=== PATIENT | male | born 1990 | race Two or more races ===

== ENCOUNTER → 2018-11-09 | Emergency (ER) | payer SELFPAY ==
--- NOTE | 2018-11-09 18:00 | NUR ---
PT LEFT WITHOUT BEING SEEN
== END | disposition left against medical advice (07) ==
LOC: ER 17:20
DX: Z53.21 Procedure and treatment not carried out due to patient leaving prior to being seen by health care provider (principal)

== ENCOUNTER 2018-11-13 13:04 | Emergency (ER) | payer OTHER ==
[~2018-11-13] VITALS: Ht 180.3 cm; Wt 93.0 kg
[2018-11-13 13:13] VITALS: BP 131/115
--- NOTE | 2018-11-13 14:13 | NUR ---
PT IS BACK FROM THE CT SCAN.
--- NOTE | 2018-11-13 15:00 | NUR ---
Patient discharged in custody in stable condition. Written and verbal after care instructions given. Patient verbalizes understanding of instruction.
== END 2018-11-13 15:04 ==
LOC: ER 13:08
DX: S05.12XA Contusion of eyeball and orbital tissues, left eye, initial encounter (principal); S09.8XXA Other specified injuries of head, initial encounter; R51 Headache; Z02.89 Encounter for other administrative examinations; Y04.8XXA Assault by other bodily force, initial encounter; Y93.89 Activity, other specified; Y92.89 Other specified places as the place of occurrence of the external cause; Y99.8 Other external cause status
CPT/HCPCS: 70486-TC

== ENCOUNTER 2019-02-09 00:13 | Emergency (ER) | payer SELFPAY ==
--- NOTE | 2019-02-09 00:16 | NUR ---
CALLED FOR TRIAGE, NO ANSWER.
--- NOTE | 2019-02-09 00:24 | NUR ---
CALLED FOR TRIAGE, NO ANSWER.
--- NOTE | 2019-02-09 00:29 | NUR ---
CALLED FOR TRIAGE, NO ANSWER.
== END 2019-02-09 01:30 | disposition left against medical advice (07) ==
LOC: ER 00:20
DX: Z53.21 Procedure and treatment not carried out due to patient leaving prior to being seen by health care provider (principal)

== ENCOUNTER 2021-08-28 | Emergency (ER) | payer MEDICAID ==
--- NOTE | 2021-08-28 00:50 | NUR ---
CALLED FOR TRIAGE NOT IN WAITING ROOM.
--- NOTE | 2021-08-28 01:24 | NUR ---
PATIENT LEFT WITHOUT BEING SEEN
== END 2021-08-28 01:25 | disposition left against medical advice (07) ==
LOC: ER 00:18
DX: Z53.21 Procedure and treatment not carried out due to patient leaving prior to being seen by health care provider (principal)

== ENCOUNTER 2021-10-03 09:08 | Emergency (ER) | payer MEDICAID ==
[~2021-10-03] VITALS: Ht 182.9 cm; Wt 81.6 kg
--- NOTE | 2021-10-03 09:45 | NUR ---
DR LING AT BEDSIDE W/ PATIENT.
--- NOTE | 2021-10-03 10:21 | NUR ---
PHLEB TECH AT BEDSIDE FOR BLOOD DRAW.
--- NOTE | 2021-10-03 10:25 | NUR ---
STATIONARY ENGINEER SUPERVISOR AT BEDSIDE
[2021-10-03 10:46] LABS: BASOPHILS % (AUTO) 0.3 % (0.0-2.0); EOSINOPHILS % (AUTO) 1.6 % (0.0-6.0); HEMATOCRIT 33 % (39-51); HEMOGLOBIN 10.2 g/dL (13.5-17.5); LYMPHOCYTES # (AUTO) 1.4 K/uL (0.8-4.8); LYMPHOCYTES % (AUTO) 17.8 % (20.0-44.0); MEAN CORPUSCULAR HGB CONC 31 g/dl (31.0-36.0); MEAN CORPUSCULAR VOLUME 63 fL (80-96); MONOCYTES # (AUTO) 0.7 K/uL (0.1-1.30); MONOCYTES % (AUTO) 9.5 % (2.0-12.0); NEUTROPHILS # (AUTO) 5.4 K/uL (1.8-8.9); NEUTROPHILS % (AUTO) 70.8 % (43.0-81.0); PLATELET COUNT (AUTO) 279 K/uL (150-450); RED BLOOD CELL COUNT(AUTO) 5.26 MIL/uL (4.5-6.0); WHITE BLOOD COUNT (AUTO) 7.6 K/uL (4.3-11.0)
[2021-10-03 10:50] LABS: CALCIUM, SERUM 9.2 mg/dL (8.5-10.1); CREATININE 0.6 mg/dL (0.6-1.3); POTASSIUM 3.9 mmol/L (3.5-5.1)
--- NOTE | 2021-10-03 10:55 | NUR ---
ASKED PATIENT TO GIVE URINE BUT PATIENT DOESN'T FEEL LIKE URINATING RIGHT NOW; ASKED IF CATHETER IS OK BUT PATIENT REFUSED.
[2021-10-03 10:56] LABS: BILIRUBIN,DIRECT 0.1 mg/dL (0.0-0.2); BILIRUBIN,TOTAL 0.2 mg/dL (0.2-1.0); TOTAL PROTEIN, SERUM 8.8 g/dL (6.4-8.2)
[2021-10-03] MEDS ORDERED: NALO1DIS2 IM (10:58)
[2021-10-03] MEDS ORDERED: HYDR25TA4 PO (10:58)
[2021-10-03 11:19] LABS: EOSINOPHILS % (MANUAL) 4 % (0-4); LYMPHOCYTES % (MANUAL) 19 % (16-48); MONOCYTES % (MANUAL) 5 % (0-11.0); NEUTROPHILS % (MANUAL) 72 (42-76)
[2021-10-03 13:03] VITALS: BP 132/80
== END 2021-10-03 13:10 | disposition home or self-care (01) ==
LOC: ER 09:12
DX: R60.9 Edema, unspecified (principal); I51.7 Cardiomegaly; F19.10 Other psychoactive substance abuse, uncomplicated; Z79.899 Other long term (current) drug therapy
CPT/HCPCS: 36415; 71045-TC; 80048-TC; 80076-TC; 85025-TC; 85378-TC; 85730-TC; 93970-TC

== ENCOUNTER 2021-11-29 10:11 | Emergency (ER) | payer MEDICAID, OTHER ==
[~2021-11-29] VITALS: Ht 177.8 cm; Wt 59.0 kg
[~2021-11-29 10:11] MED LIST: HYDR25TA4 PO; NALO1DIS2 IM
--- NOTE | 2021-11-29 10:25 | NUR ---
Pt angry gets obnoxious at times/yells able to express worry about going to nursing home and asking officers about penal code. NO abvious distress. 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
[2021-11-29] MEDS ORDERED: BUPRENORPHINE HCL 2 MG TAB.SUBL SL ONE ×2 (10:30)
[2021-11-29 10:36] VITALS: BP 125/92
== END 2021-11-29 10:38 ==
LOC: ER 10:13
DX: Z02.89 Encounter for other administrative examinations (principal); F11.23 Opioid dependence with withdrawal; Z79.899 Other long term (current) drug therapy

== ENCOUNTER 2022-10-17 09:30 | Emergency (ER) | payer MEDICAID, OTHER ==
[~2022-10-17] VITALS: Ht 182.9 cm; Wt 86.6 kg
--- NOTE | 2022-10-17 09:38 | NUR ---
TO ER BE 11. BIB [facility] 39 FROM URGENT [facility]ARE C/O NAUSEA AND BODY PAIN. PT STATED HES HAVING WITHDRAWALS FROM FENTANYL. ATTACHED TO MONITOR. DR BARROS AT BEDSIDE.
[2022-10-17] MEDS ORDERED: NALO4SPR BNOSTRILS (09:47)
[2022-10-17] MEDS ORDERED: BUPR1FIL SL (09:47)
--- NOTE | 2022-10-17 09:50 | NUR ---
CLINICAL RESEARCH SPEC AT BED SIDE.
--- NOTE | 2022-10-17 10:10 | NUR ---
LISTS OF HELP RESOURCES GIVEN TO THE PATIENT
[2022-10-17 10:20] VITALS: BP 131/81; TEMP 98.1
--- NOTE | 2022-10-17 10:20 | NUR ---
Patient discharged to home in stable condition. Written and verbal after care instructions given. Patient verbalizes understanding of instruction.
== END 2022-10-17 10:21 | disposition home or self-care (01) ==
LOC: ER 09:35
DX: F19.10 Other psychoactive substance abuse, uncomplicated (principal)

== ENCOUNTER 2023-03-27 06:26 | Emergency (ER) | payer MEDICAID ==
[~2023-03-27] VITALS: Ht 182.9 cm; Wt 86.2 kg
[~2023-03-27 06:26] MED LIST changes: +BUPR1FIL SL; +NALO4SPR BNOSTRILS
[2023-03-27 06:34] VITALS: BP 126/91; TEMP 97.8; O2SAT 98
[2023-03-27] MEDS ORDERED: NALO4SPR BNOSTRILS (06:39)
== END 2023-03-27 06:44 | disposition home or self-care (01) ==
LOC: ER 06:26
DX: F19.10 Other psychoactive substance abuse, uncomplicated (principal); Z79.899 Other long term (current) drug therapy

== ENCOUNTER 2023-07-15 08:36 | Emergency (ER) | payer MEDICAID, OTHER ==
[~2023-07-15] VITALS: Ht 177.8 cm; Wt 65.8 kg
[2023-07-15 08:41] VITALS: BP 129/71; TEMP 98.2; O2SAT 97
[2023-07-15] MEDS ORDERED: CLIN300C12 PO (08:58)
[2023-07-15] MEDS ORDERED: CLINDAMYCIN HCL 150 MG CAPSULE ONE (09:14)
[2023-07-15] MEDS: CLINDAMYCIN HCL 150 MG CAPSULE PO ONE (09:16)
== END 2023-07-15 09:17 | disposition home or self-care (01) ==
LOC: ER 08:45
DX: L03.011 Cellulitis of right finger (principal); Z59.01 Sheltered homelessness

== ENCOUNTER 2023-07-17 18:24 | Emergency (ER) | payer OTHER ==
[~2023-07-17 18:24] MED LIST changes: +CLIN300C12 PO
[2023-07-18] MEDS ORDERED: SULF1TAB48 PO (15:27)
[2023-07-18] MEDS ORDERED: CEPH500C2 PO (15:27)
== END 2023-07-17 22:33 | disposition left against medical advice (07) ==
LOC: ER 18:29
DX: Z00.00 Encounter for general adult medical examination without abnormal findings (principal); Z53.21 Procedure and treatment not carried out due to patient leaving prior to being seen by health care provider

== ENCOUNTER 2023-07-18 11:04 | Emergency (ER) | payer OTHER ==
[~2023-07-18] VITALS: Ht 182.9 cm; Wt 90.7 kg
[2023-07-18 12:37] VITALS: BP 145/72; TEMP 98.2; O2SAT 99
[2023-07-18] MEDS ORDERED: SULF1TAB48 PO (15:27)
[2023-07-18] MEDS ORDERED: CEPH500C2 PO (15:27)
== END 2023-07-18 15:44 | disposition home or self-care (01) ==
LOC: ER 11:08
DX: L03.011 Cellulitis of right finger (principal); Z59.01 Sheltered homelessness; Z79.899 Other long term (current) drug therapy

== ENCOUNTER 2024-11-08 16:50 | Emergency (ER) | payer OTHER ==
[~2024-11-08] VITALS: Ht 182.9 cm; Wt 90.7 kg
[~2024-11-08 16:50] MED LIST changes: +CEPH500C2 PO; +SULF1TAB48 PO
[2024-11-08] MEDS ORDERED: IBUP-1490 PO (18:22)
[2024-11-08 19:00] VITALS: BP 142/84; TEMP 98.6; O2SAT 99
== END 2024-11-08 19:01 | disposition home or self-care (01) ==
LOC: ER 17:06
DX: S00.83XA Contusion of other part of head, initial encounter (principal); S49.82XA Other specified injuries of left shoulder and upper arm, initial encounter; Z79.899 Other long term (current) drug therapy; Z59.00 Homelessness unspecified; W22.8XXA Striking against or struck by other objects, initial encounter; Y93.89 Activity, other specified; Y92.89 Other specified places as the place of occurrence of the external cause; Y99.8 Other external cause status
CPT/HCPCS: 70450-TC; 70486-TC; 72125-TC; 73030-TC; 73060-TC

== ENCOUNTER 2025-01-22 00:48 | Emergency (ER) | payer OTHER ==
[~2025-01-22 00:48] MED LIST changes: +IBUP-1490 PO
== END 2025-01-22 05:21 | disposition left against medical advice (07) ==
LOC: ER 00:49
DX: Z53.21 Procedure and treatment not carried out due to patient leaving prior to being seen by health care provider (principal)

== ENCOUNTER 2025-01-25 06:43 | Emergency (ER) | payer OTHER | END 2025-01-25 07:20 | disposition left against medical advice (07) | LOC: ER 06:51 | DX: Z53.21 Procedure and treatment not carried out due to patient leaving prior to being seen by health care provider (principal) ==

== ENCOUNTER 2025-03-31 01:49 | Emergency (ER) | payer OTHER ==
[~2025-03-31] VITALS: Ht 182.9 cm; Wt 90.7 kg
[2025-03-31 02:18] VITALS: BP 122/91; TEMP 98.7
[2025-03-31 02:22] VITALS: O2SAT 99
== END 2025-03-31 05:52 | disposition home or self-care (01) ==
LOC: ER 01:59
DX: F19.10 Other psychoactive substance abuse, uncomplicated (principal); Z00.00 Encounter for general adult medical examination without abnormal findings; Z79.899 Other long term (current) drug therapy; Z59.00 Homelessness unspecified